=== PATIENT | male | born 1970 | race Asian ===

== ENCOUNTER 2020-02-04 09:33 | Emergency (ER) | payer BC ==
[~2020-02-04] VITALS: Ht 177.8 cm; Wt 73.0 kg
--- NOTE | 2020-02-04 09:55 | NUR ---
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
[2020-02-04 10:07] LABS: BASOPHILS % (AUTO) 0.7 % (0.0-2.0); EOSINOPHILS % (AUTO) 0.4 % (0.0-6.0); HEMATOCRIT 42 % (39-51); HEMOGLOBIN 14.5 g/dL (13.5-17.5); LYMPHOCYTES # (AUTO) 1.6 /CMM (0.8-4.8); MEAN CORPUSCULAR HGB CONC 34 g/dl (31.0-36.0); MEAN CORPUSCULAR VOLUME 93 fL (80-96); MONOCYTES # (AUTO) 0.3 /CMM (0.1-1.30); MONOCYTES % (AUTO) 7.3 % (2.0-12.0); NEUTROPHILS # (AUTO) 2.5 /CMM (1.8-8.9); NEUTROPHILS % (AUTO) 56.6 % (43.0-81.0); PLATELET COUNT (AUTO) 205 /CMM (150-450); RED BLOOD CELL COUNT(AUTO) 4.55 MIL/uL (4.5-6.0); WHITE BLOOD COUNT (AUTO) 4.5 K/uL (4.3-11.0)
[2020-02-04] MEDS ORDERED: KETOROLAC TROMETHAMINE 15 MG/ML VIAL ONE (10:07)
[2020-02-04] MEDS: IV NS 0.9% 500 ML BAG IV ONE (10:14)
[2020-02-04] MEDS: KETOROLAC TROMETHAMINE INJ 30 MG/ML VIAL IV ONE (10:15)
[2020-02-04 10:29] LABS: ALANINE AMINOTRANSFERASE 26 U/L (12-78); ALBUMIN 4.1 g/dL (3.4-5.0); ALKALINE PHOSPHATASE 54 U/L (46-116); ASPARTATE AMINOTRANSFERASE 19 U/L (15-37); BILIRUBIN,DIRECT 0.2 mg/dL (0.0-0.2); BILIRUBIN,TOTAL 0.9 mg/dL (0.2-1.0); CALCIUM, SERUM 8.9 mg/dL (8.5-10.1); CARBON DIOXIDE 24 mmol/L (21-32); CHLORIDE 101 mmol/L (98-107); CREATININE 0.9 mg/dL (0.6-1.3); GLUCOSE 156 mg/dL (74-106); LIPASE 103 U/L (73-393); POTASSIUM 3.7 mmol/L (3.5-5.1); SODIUM SERUM 135 mmol/L (136-145); TOTAL PROTEIN, SERUM 7.1 g/dL (6.4-8.2); UREA NITROGEN, BLOOD 9 mg/dL (7-18)
--- NOTE | 2020-02-04 10:34 | NUR ---
BIB RA FROM [facility] BECAUSE OF BILATERAL SHOULDER PAIN X 1 WEEK BUT HE SAID IT'S MORE OF SORETHROAT/SOB AND CHEST PAIN X 1 WEEK, L SIDED SHARP CHEST PAIN R/T THROAT/NECK 02/17 PS, TO ER BED 10, HOOKED TO DISPATCHER SERVICE OR WORK, SINUS RHYTHM, CHANGED T [facility], WARM BLABKET PROVIDED, DR CRAMER AT BEDSIDE
--- NOTE | 2020-02-04 10:57 | NUR ---
IV removed. Catheter intact and site benign. Pressure and 4x4 applied to site. No bleeding noted.Patient discharged to home in stable condition. Written and verbal after care instructions given. Patient verbalizes understanding of instruction.
[2020-02-04 10:58] VITALS: BP 125/83
== END 2020-02-04 10:59 | disposition home or self-care (01) ==
LOC: ER 09:36
DX: R07.89 Other chest pain (principal); R42 Dizziness and giddiness; F45.8 Other somatoform disorders
CPT/HCPCS: 36415; 71045; 80048; 80076; 83690; 84484; 85025; 93005; 96374; 99285; J1885; J7040

== ENCOUNTER 2020-09-29 05:39 | Emergency (ER) | payer BC ==
[~2020-09-29] VITALS: Ht 177.8 cm; Wt 74.8 kg
--- NOTE | 2020-09-29 05:43 | NUR ---
PT BIBSELF C/O EPIGASTRIC PAIN WITH N/VX3 DAYS. PT AAOX4. PT MOANING AND GAURDING ABDOMENT. PT STATES THAT "NOTHING MAKES THE PAIN BETTER, IT JUST KEEPS GETTING WORSE". PT SKIN WARM, DRY, AND INTACT. PT ATTACHED TO MONITOR AND POX. PT GIVEN BLANKET AND CALL LIGHT WITHIN REACH.
--- NOTE | 2020-09-29 06:00 | NUR ---
BLOOD AND URINE OBTAINED AND SENT TO LAB
[2020-09-29] MEDS ORDERED: ONDANSETRON HCL/PF 4 MG/2 ML VIAL ONE (06:27)
[2020-09-29] MEDS ORDERED: LIDOCAINE VISCOUS 2% UD 15 ML UDC ONE (06:27)
[2020-09-29] MEDS ORDERED: MAG HYDROX/AL HYDROX/SIMETH 30 ML UDC ONE (06:27)
[2020-09-29] MEDS ORDERED: FAMOTIDINE/PF INJ 20 MG/2 ML VIAL IV ONE (06:28)
[2020-09-29] MEDS: ONDANSETRON HCL/PF 4 MG/2 ML VIAL IVP ONE (06:30)
[2020-09-29] MEDS: MAG HYDROX/AL HYDROX/SIMETH 30 ML UDC PO ONE (06:30)
[2020-09-29] MEDS: LIDOCAINE VISCOUS 2% UD 15 ML UDC MM ONE (06:30)
[2020-09-29] MEDS: IV NS 0.9% 1,000 ML BAG IV ONE (06:30)
[2020-09-29] MEDS: FAMOTIDINE/PF INJ 20 MG/2 ML VIAL IV ONE (06:30)
[2020-09-29] MEDS ORDERED: FAMO-131 PO (06:31)
[2020-09-29] MEDS ORDERED: ONDA4TAB5 PO (06:31)
[2020-09-29 06:40] LABS: BASOPHILS # (AUTO) 0.1 /CMM (0.0-0.2); BASOPHILS % (AUTO) 0.8 % (0.0-2.0); EOSINOPHILS % (AUTO) 1.2 % (0.0-6.0); HEMATOCRIT 43 % (39-51); HEMOGLOBIN 14.7 g/dL (13.5-17.5); LYMPHOCYTES % (AUTO) 45.1 % (20.0-44.0); MEAN CORPUSCULAR HGB CONC 34 g/dl (31.0-36.0); MEAN CORPUSCULAR VOLUME 95 fL (80-96); MONOCYTES # (AUTO) 0.6 /CMM (0.1-1.30); MONOCYTES % (AUTO) 7.1 % (2.0-12.0); NEUTROPHILS % (AUTO) 45.8 % (43.0-81.0); PLATELET COUNT (AUTO) 188 /CMM (150-450); RED BLOOD CELL COUNT(AUTO) 4.52 MIL/uL (4.5-6.0); WHITE BLOOD COUNT (AUTO) 8.8 K/uL (4.3-11.0)
[2020-09-29 06:45] LABS: BILIRUBIN,URINE NEGATIVE (NEGATIVE); COLOR,URINE YELLOW (YELLOW); LEUKOCYTE ESTERASE ,URINE NEGATIVE (NEGATIVE); NITRITE, URINE NEGATIVE (NEGATIVE); PH,URINE 5.5 (5.0-8.0); PROTEIN,URINE NEGATIVE (NEGATIVE); UGLUCOSE NEGATIVE (NEGATIVE); UROBILINOGEN,URINE 0.2 EU/dL (0.2)
--- NOTE | 2020-09-29 07:00 | NUR ---
US AT BEDSIDE
--- NOTE | 2020-09-29 07:16 | NUR ---
GAVE REPORT TO EDWARD MENDOZA FOR ESTHER
--- NOTE | 2020-09-29 07:17 | NUR ---
u/s tech at bedside for gallbladder ultrasound.
[2020-09-29 08:03] LABS: BILIRUBIN,DIRECT 0.1 mg/dL (0.0-0.2); BILIRUBIN,TOTAL 0.5 mg/dL (0.2-1.0); CALCIUM, SERUM 8.7 mg/dL (8.5-10.1); POTASSIUM 3.8 mmol/L (3.5-5.1); TOTAL PROTEIN, SERUM 7.2 g/dL (6.4-8.2)
[2020-09-29] MEDS ORDERED: IV NS 0.9% 250 ML IV ONE (08:17)
[2020-09-29] MEDS ORDERED: CT SWABBABLE VALVE TRANS SET 1 EA INFUS.SET MC ONE (08:17)
[2020-09-29] MEDS ORDERED: IOHEXOL-300 100 ML VIAL IV ONE (08:17)
--- NOTE | 2020-09-29 08:34 | NUR ---
pt stable s/p ct abdomen / pelvis with contrast , no reaction to contrast noted , attached to monitor ,
[2020-09-29 08:59] LABS: BACTERIA,URINE Rare /HPF (None Seen); RBC,URINE NONE SEEN /HPF (0-2); SQUAMOUS EPITHELIAL CELL,UR Rare /HPF (None Seen); WBC,URINE 0-2 /HPF (0-3)
[2020-09-29 09:00] LABS: CALCIUM OXALATE CRYSTALS,UR Few /HPF (None Seen)
--- NOTE | 2020-09-29 10:16 | NUR ---
Patient a/ox4, breathing even and unlabored, denies pain at this time. IV removed. Catheter intact and site benign. Pressure and 4x4 applied to site. No bleeding noted.Patient discharged to home in stable condition. Written and verbal after care instructions given. Patient verbalizes understanding of instruction.
[2020-09-29 10:17] VITALS: BP 142/88
== END 2020-09-29 10:17 | disposition home or self-care (01) ==
LOC: ER 05:42
DX: R10.13 Epigastric pain (principal); R11.2 Nausea with vomiting, unspecified; G89.29 Other chronic pain; M54.5 Low back pain; F41.9 Anxiety disorder, unspecified; F10.10 Alcohol abuse, uncomplicated; F17.200 Nicotine dependence, unspecified, uncomplicated; Y90.9 Presence of alcohol in blood, level not specified; Z79.899 Other long term (current) drug therapy
CPT/HCPCS: 36415; 74177; 76705; 80048; 80076; 81001; 83690; 85025; 96361; 96374; 96375; 99285; J2405; J3490; J7030; J7050; Q9967